=== PATIENT | female | born 1995 | race Caucasian/White ===

== ENCOUNTER 2017-08-28 04:51 | Inpatient (IN) | payer OTHER ==
[~2017-08-28] VITALS: Ht 149.9 cm; Wt 44.5 kg
[2017-08-28] MEDS ORDERED: PRENATAL 19 TA1 EACH PO (05:16)
== END 2017-09-06 11:41 | DRG 781 ==
LOC: OBS/DEL 04:51 → LDR 09:08 → OB/GYN 09-03 10:17
PROVIDERS: Urology
PROC: 4A1HXCZ Monitoring of Products of Conception, Cardiac Rate, External Approach (ICD-10-PCS; 2017-08-28)
PROC: BW40ZZZ Ultrasonography of Abdomen (ICD-10-PCS; 2017-08-28)
PROC: BT43ZZZ Ultrasonography of Bilateral Kidneys (ICD-10-PCS; 2017-08-28)
PROC: 0T778DZ Dilation of Left Ureter with Intraluminal Device, Via Natural or Artificial Opening Endoscopic (ICD-10-PCS; principal; 2017-08-29 17:00)
PROC: B246ZZZ Ultrasonography of Right and Left Heart (ICD-10-PCS; 2017-08-30)
PROC: 3E0F7GC Introduction of Other Therapeutic Substance into Respiratory Tract, Via Natural or Artificial Opening (ICD-10-PCS; 2017-08-30)
PROC: 4A033R1 Measurement of Arterial Saturation, Peripheral, Percutaneous Approach (ICD-10-PCS; 2017-08-30)
DX: O26.892 Other specified pregnancy related conditions, second trimester (principal); N20.1 Calculus of ureter; O99.412 Diseases of the circulatory system complicating pregnancy, second trimester; O99.512 Diseases of the respiratory system complicating pregnancy, second trimester; J95.89 Other postprocedural complications and disorders of respiratory system, not elsewhere classified; I97.89 Other postprocedural complications and disorders of the circulatory system, not elsewhere classified; I47.1 Supraventricular tachycardia; O23.02 Infections of kidney in pregnancy, second trimester; Z3A.24 24 weeks gestation of pregnancy; O23.42 Unspecified infection of urinary tract in pregnancy, second trimester

== ENCOUNTER 2017-11-14 15:30 | Inpatient (IN) | payer OTHER ==
[~2017-11-14] VITALS: Ht 149.9 cm; Wt 54.4 kg
[~2017-11-14 15:30] MED LIST: PRENATAL 19 TA1 EACH PO
== END 2017-12-18 14:00 | disposition home or self-care (01) | DRG 774 ==
LOC: LDR 12-15 15:01 → OB/GYN 12-16 16:43
PROC: 10D07Z6 Extraction of Products of Conception, Vacuum, Via Natural or Artificial Opening (ICD-10-PCS; principal; 2017-12-16)
PROC: 0DQR0ZZ Repair Anal Sphincter, Open Approach (ICD-10-PCS; 2017-12-16)
PROC: 0W8NXZZ Division of Female Perineum, External Approach (ICD-10-PCS; 2017-12-16)
PROC: 10907ZC Drainage of Amniotic Fluid, Therapeutic from Products of Conception, Via Natural or Artificial Opening (ICD-10-PCS; 2017-12-16)
PROC: 3E0P7VZ Introduction of Hormone into Female Reproductive, Via Natural or Artificial Opening (ICD-10-PCS; 2017-12-16)
PROC: 3E033VJ Introduction of Other Hormone into Peripheral Vein, Percutaneous Approach (ICD-10-PCS; 2017-12-16)
PROC: 4A1HXCZ Monitoring of Products of Conception, Cardiac Rate, External Approach (ICD-10-PCS; 2017-12-16)
DX: O70.21 Third degree perineal laceration during delivery, IIIa (principal); O75.3 Other infection during labor; O13.4 Gestational [pregnancy-induced] hypertension without significant proteinuria, complicating childbirth; Z3A.40 40 weeks gestation of pregnancy; Z37.0 Single live birth

== ENCOUNTER 2017-12-05 09:08 | Outpatient (CLI) | payer OTHER | END 2017-12-05 10:12 | disposition home or self-care (01) | LOC: NST 09:08 | DX: Z34.03 Encounter for supervision of normal first pregnancy, third trimester (principal) ==